=== PATIENT | female | born 1930 | race Caucasian/White ===

== ENCOUNTER 2016-10-09 16:35 | Emergency (ER) | payer MEDICARE ==
[~2016-10-09] VITALS: Ht 152.4 cm; Wt 45.0 kg
[2016-10-09 16:50] VITALS: BP_SYST 124
--- NOTE | 2016-10-09 17:40 | NUR ---
Per daughter in law pt refuses treatment with repiratory/cardiac conditions. Resp labored, HR - tachycardia. Pt ordered by PCP to wear O2 at all times at home, pt refuses and continues to smoke in the house.
== END 2016-10-09 18:35 | disposition left against medical advice (07) ==
LOC: ED 16:36
DX: L98.419 Non-pressure chronic ulcer of buttock with unspecified severity (principal); F17.210 Nicotine dependence, cigarettes, uncomplicated; Z99.81 Dependence on supplemental oxygen; Z91.19 Patient's noncompliance with other medical treatment and regimen
CPT/HCPCS: 99282

== ENCOUNTER 2016-10-28 13:37 | Inpatient (IN) | payer MEDICARE ==
[~2016-10-28] VITALS: Ht 177.8 cm; Wt 48.3 kg
[2016-10-28] MEDS ORDERED: TETANUS, DIPTHERIA, PERTUSSIS (ADACELL) VACCINE 0.5 ML VIAL IM ONE (14:30)
[2016-10-28] MEDS ORDERED: ALBUTEROL 0.083% NEB SOLUTION 2.5 MG/3 ML VIAL INH ONE ×2 (14:30→14:40)
[2016-10-28] MEDS ORDERED: BACITRACIN OINTMENT 0.9 GM PACKET TOP ONE (14:30)
[2016-10-28 15:05] LABS: BASOPHILS % (AUTO) 0 % (0-2); EOSINOPHILS # (AUTO) 0.1 10^3uL; EOSINOPHILS % (AUTO) 1 % (0-4); LYMPHOCYTES # (AUTO) 1.7 X10^3; MEAN CORPUSCULAR HGB CONC 32.8 g/dL (31.0-37.0); MEAN PLATELET VOLUME 9.2 FL (6.0-9.5); MONOCYTES # (AUTO) 0.6 X10^3; MONOCYTES % (AUTO) 6 % (3-11); NEUTROPHILS # (AUTO) 7.7 X10^3; NEUTROPHILS % (AUTO) 76 % (51-67); PLATELET COUNT 365 10^3uL (150-450); WHITE BLOOD COUNT 10.12 10^3uL (4.0-11.0)
[2016-10-28 15:10] LABS: ALBUMIN 4.2 g/dL (3.4-5.0); ANION GAP 21.2 MEQ/L (3-15); CALCULATED IONIZED CALCIUM 4.1 mg/dL (3.8-4.6)
[2016-10-28 15:18] LABS: MEAN CORPUSCULAR VOLUME 107 FL (80-100)
[2016-10-28] MEDS ORDERED: LORazepam 2 MG/ML (ATIVAN) 1 ML VIAL IV ONE ×2 (16:20→18:00)
[2016-10-28] MEDS ORDERED: NICOTINE 21 MG (NICODERM) PATCH TD ONE ×2 (16:20→18:21)
[2016-10-28] MEDS ORDERED: SODIUM CHLORIDE FLUSH 3 ML SYR IV ONE (16:20)
[2016-10-28] MEDS ORDERED: methylPREDNISolone 125 MG (Solu-MEDROL) VIAL IV ONE (16:20)
[2016-10-28 17:00] VITALS: BP 131/63
[2016-10-28] MEDS ORDERED: MAGNESIUM SULFATE 1 GM/2 ML VIAL ONE (17:01)
[2016-10-28] MEDS ORDERED: MULTIVITAMINS (MVI) 2 5 ML VIALS IV ONE (17:01)
[2016-10-28] MEDS ORDERED: THIAMINE 100 MG/ML (VITAMIN B1) 2 ML VIAL ONE (17:02)
[2016-10-28] MEDS: MULTIVITAMIN INJ 10 ML, THIAMINE INJ 100 MG, MAGNESIUM SULFATE 1GM VIAL 2 GM in D5LR 1,... IV SCH (17:34)
[2016-10-28] MEDS: MAGNESIUM SULFATE 1GM VIAL 2 GM, THIAMINE INJ 100 MG, MULTIVITAMIN INJ 10 ML in D5LR 1,... IV SCH ×2 (17:34→18:53)
[2016-10-28] MEDS ORDERED: ALBUTEROL 0.083% NEB SOLUTION 2.5 MG/3 ML VIAL INH PRN (17:45)
[2016-10-28] MEDS ORDERED: THIAMINE 100 MG/ML (VITAMIN B1) 2 ML VIAL IM SCH (18:00)
[2016-10-28] MEDS ORDERED: HALOPERIDOL 5 MG/ML (HALDOL) 1 ML AMP IM PRN (18:00)
[2016-10-28] MEDS ORDERED: LORazepam 2 MG/ML (ATIVAN) 1 ML VIAL IV PRN (18:00)
[2016-10-28 18:09] VITALS: BP 131/63
[2016-10-28] MEDS ORDERED: ACETAMINOPHEN 325 MG TAB (TYLENOL) PO PRN (18:15)
[2016-10-28] MEDS ORDERED: ONDANSETRON 2 MG/ML (Z0FRAN) 2 ML VIAL IV PRN (18:15)
[2016-10-28] MEDS ORDERED: MAGNESIUM HYDROXIDE 80MG/ML (MILK OF MAGNESIA) 30 ML UDC PO PRN (18:15)
[2016-10-28] MEDS: BUDESONIDE NEBS 0.5 MG/2ML (PULMICORT) AMP INH SCH (20:27)
[2016-10-28] MEDS: ALBUTEROL/IPRATROPIUM 3MG-0.5MG/3ML (DUONEB) NEB VIAL INH SCH (20:27)
[2016-10-28] MEDS: methylPREDNISolone 125 MG (Solu-MEDROL) VIAL IV SCH (21:49)
[2016-10-28] MEDS: SODIUM CHLORIDE FLUSH 10 ML SYR IV PRN (21:49)
[2016-10-28] MEDS: FAMOTIDINE 20 MG (PEPCID) TABLET PO SCH (21:50)
[2016-10-29 00:10] VITALS: BP 125/65
[2016-10-29] MEDS: LORazepam 2 MG/ML (ATIVAN) 1 ML VIAL IV PRN ×5 (00:12→17:12)
[2016-10-29] MEDS: ALBUTEROL/IPRATROPIUM 3MG-0.5MG/3ML (DUONEB) NEB VIAL INH SCH ×4 (03:12→21:20)
[2016-10-29] MEDS ORDERED: MAGNESIUM SULFATE 1 GM/2 ML VIAL ONE (03:33)
[2016-10-29] MEDS: MULTIVITAMIN INJ 10 ML, THIAMINE INJ 100 MG, MAGNESIUM SULFATE 1GM VIAL 2 GM in D5LR 1,... IV SCH ×2 (05:10→19:15)
[2016-10-29 06:07] LABS: MEAN CORPUSCULAR HGB CONC 33.6 g/dL (31.0-37.0); MEAN PLATELET VOLUME 9.4 FL (6.0-9.5); PLATELET COUNT 325 10^3uL (150-450); WHITE BLOOD COUNT 4.95 10^3uL (4.0-11.0)
[2016-10-29 06:18] LABS: ALBUMIN 3.4 g/dL (3.4-5.0); ANION GAP 14.8 MEQ/L (3-15); CALCULATED IONIZED CALCIUM 4.3 mg/dL (3.8-4.6); TOTAL PROTEIN 6.7 g/dL (6.4-8.5)
[2016-10-29 06:31] LABS: MEAN CORPUSCULAR HEMOGLOBIN 35.2 PG (26.0-34.0); MEAN CORPUSCULAR VOLUME 105 FL (80-100)
[2016-10-29 06:32] LABS: BAND NEUTROPHILS % 1 % (0-6); EOSINOPHILS % 0 % (0-4); LYMPHOCYTES # 0.3 #; MONOCYTES % 1 % (3-11); RBC MORPH NORMAL (NORMAL); SEGMENTED NEUTROPHILS % 92 % (51-67); TOTAL CELLS COUNTED 100
[2016-10-29 08:10] VITALS: BP 119/44
[2016-10-29] MEDS: FAMOTIDINE 20 MG (PEPCID) TABLET PO SCH (08:59)
[2016-10-29] MEDS: methylPREDNISolone 125 MG (Solu-MEDROL) VIAL IV SCH (09:00)
[2016-10-29] MEDS: SODIUM CHLORIDE FLUSH 10 ML SYR IV PRN ×5 (09:09→17:13)
[2016-10-29] MEDS: BUDESONIDE NEBS 0.5 MG/2ML (PULMICORT) AMP INH SCH ×2 (09:41→21:20)
[2016-10-29] MEDS ORDERED: NS FLUSH 3 ML PRN IV (10:10)
[2016-10-29] MEDS: NICOTINE 21 MG (NICODERM) PATCH TD SCH (10:59)
[2016-10-29] MEDS ORDERED: CHLORDIAZEPOXIDE 25 MG PO SCH (13:00)
[2016-10-29 15:31] VITALS: BP 114/40
[2016-10-29] MEDS: DOXYCYCLINE 100 MG (VIBRAMYCIN) TABLET PO SCH (18:45)
[2016-10-29 21:52] LABS: BILIRUBIN,URINE Negative (Negative); CLARITY,URINE Clear; COLOR,URINE Yellow; GLUCOSE, URINE (UA) Negative (Negative); LEUKOCYTE ESTERASE ,URINE Negative (Negative); PH,URINE 5.5 (5.0 - 8.0); UROBILINOGEN,URINE 0.2 mg/dL (0.2-1.0)
[2016-10-29] MEDS: CHLORDIAZEPOXIDE 25 MG PO SCH (22:47)
[2016-10-30 00:06] VITALS: BP 103/49
[2016-10-30] MEDS: ALBUTEROL/IPRATROPIUM 3MG-0.5MG/3ML (DUONEB) NEB VIAL INH SCH ×5 (03:23→21:12)
[2016-10-30] MEDS: CHLORDIAZEPOXIDE 25 MG PO SCH ×3 (05:46→21:13)
[2016-10-30] MEDS: DOXYCYCLINE 100 MG (VIBRAMYCIN) TABLET PO SCH ×2 (06:23→18:14)
[2016-10-30 07:52] VITALS: BP 97/56
[2016-10-30] MEDS: MULTIVITAMIN INJ 10 ML, THIAMINE INJ 100 MG, MAGNESIUM SULFATE 1GM VIAL 2 GM in D5LR 1,... IV SCH (08:51)
[2016-10-30] MEDS: NS FLUSH 3 ML DAILY IV SCH (09:00)
[2016-10-30] MEDS: BUDESONIDE NEBS 0.5 MG/2ML (PULMICORT) AMP INH SCH ×2 (09:03→21:12)
[2016-10-30] MEDS: predniSONE 20 MG (DELTASONE) TABLET PO SCH (09:23)
[2016-10-30] MEDS: FAMOTIDINE 20 MG (PEPCID) TABLET PO SCH (09:23)
[2016-10-30] MEDS: PATCH REMOVAL TOP SCH (09:26)
[2016-10-30] MEDS: NICOTINE 21 MG (NICODERM) PATCH TD SCH (09:26)
[2016-10-30 15:00] VITALS: BP 153/84
[2016-10-30 20:01] VITALS: BP 120/58
[2016-10-31] VITALS: BP 132/66
[2016-10-31] MEDS: ALBUTEROL/IPRATROPIUM 3MG-0.5MG/3ML (DUONEB) NEB VIAL INH SCH (03:24)
[2016-10-31] MEDS: DOXYCYCLINE 100 MG (VIBRAMYCIN) TABLET PO SCH (06:02)
[2016-10-31] MEDS: CHLORDIAZEPOXIDE 25 MG PO SCH (06:03)
[2016-10-31] MEDS: predniSONE 20 MG (DELTASONE) TABLET PO SCH (07:53)
[2016-10-31 08:00] VITALS: BP 120/47
[2016-10-31] MEDS ORDERED: MULTIVITAMIN W/MINERALS (THERAGRAN M) TABLET PO SCH (08:00)
[2016-10-31] MEDS ORDERED: THIAMINE 100 MG (VITAMIN B-1) TAB PO SCH (08:00)
[2016-10-31] MEDS: PATCH REMOVAL TOP SCH (08:03)
[2016-10-31] MEDS: NS FLUSH 3 ML DAILY IV SCH (09:00)
[2016-10-31] MEDS: FAMOTIDINE 20 MG (PEPCID) TABLET PO SCH (09:30)
[2016-10-31] MEDS: NICOTINE 21 MG (NICODERM) PATCH TD SCH (09:31)
== END 2016-10-31 10:23 | disposition home or self-care (01) | DRG 191 ==
LOC: ED 13:39 → INTOOBSV 16:40 → UNDOADMOB 16:40 → MED/SURG 16:40 → UNDOADMOB 18:11 → OBSVTOIN 18:11
PROVIDERS: ADMIT Family Medicine; ATTEND Family Medicine
DX: J44.1 Chronic obstructive pulmonary disease with (acute) exacerbation (principal); F10.230 Alcohol dependence with withdrawal, uncomplicated; N17.9 Acute kidney failure, unspecified; Z66 Do not resuscitate; S51.812A Laceration without foreign body of left forearm, initial encounter; F03.90 Unspecified dementia, unspecified severity, without behavioral disturbance, psychotic disturbance, mood disturbance, and anxiety; I10 Essential (primary) hypertension; F17.210 Nicotine dependence, cigarettes, uncomplicated; W19.XXXA Unspecified fall, initial encounter; Z91.14 Patient's other noncompliance with medication regimen
CPT/HCPCS: 36415; 71020; 80053; 81003; 82550; 82553; 82803; 83880; 84484; 85025; 86140; 90471; 90715; 94640; 94760; 96374; 96375; 99284

== ENCOUNTER 2016-11-01 03:09 | Emergency (ER) | payer MEDICARE ==
[~2016-11-01] VITALS: Ht 177.8 cm; Wt 45.0 kg
--- NOTE | 2016-11-01 03:43 | NUR ---
Patient's daughter in law called and reported the care home had called her, she is not the DPOA and was asking for information on patient. "I explained I would have to get permission from patient to give her information even though she was hand written on the paper work from the care home that she was the one to contact." She stated, "I understand but I wanted to tell you she had just got out of the hospital today and this was her first day at the facility as she lived at home. She is confused because she is on librium and ativan for alcohol withdrawal and they told me she fell out of bed and I wanted to know if I should come up to the hospital?" I stated, "I will see if the patient is able to give me permission then I will update you as I can." She verbalized understanding.
--- NOTE | 2016-11-01 04:02 | NUR ---
Spoke with patient, asked her who what her [id number] name was and she answered, "Augusto Woodward". I asked her if it was okay to call and update Augusto on her status? She replied, "Yes, definnitely."
--- NOTE | 2016-11-01 04:51 | NUR ---
Report on patient called to Rebecca Lerma RN with [facility]. She will be coming to pick patient up, coming from [place].
--- NOTE | 2016-11-01 05:14 | NUR ---
Assisted patient to Bathroom in room. She transferred well and walked with assist of one w/o complaints of pain.
[2016-11-01 06:50] VITALS: BP 150/77
== END 2016-11-01 05:40 ==
LOC: EDUNIT# 03:09 → ED 03:11
DX: S70.02XA Contusion of left hip, initial encounter (principal); S30.0XXA Contusion of lower back and pelvis, initial encounter; W19.XXXA Unspecified fall, initial encounter; Z91.81 History of falling; Y92.122 Bedroom in nursing home as the place of occurrence of the external cause; F17.210 Nicotine dependence, cigarettes, uncomplicated; F10.20 Alcohol dependence, uncomplicated
CPT/HCPCS: 72100; 72170; 73502; 99283

== ENCOUNTER → 2016-11-01 | Outpatient (CLI) | payer MEDICARE | LOC: EMS 02:55 | PROVIDERS: ATTEND Emergency Medicine | DX: M54.5 Low back pain (principal); M25.552 Pain in left hip; W19.XXXA Unspecified fall, initial encounter ==

== ENCOUNTER 2016-11-07 15:16 | Inpatient (IN) | payer OTHER, MEDICARE ==
[~2016-11-07] VITALS: Ht 144.8 cm; Wt 44.5 kg
[2016-11-07 16:20] VITALS: BP 113/65
--- NOTE | 2016-11-07 16:20 | NUR ---
Pt admitted to room 313. Pt brought by EMS cart. Family at bedside. Katie from hospice here.
[2016-11-07] MEDS ORDERED: morphine ORAL CONC 20 MG/ML (ROXANOL) 1 ML SYRINGE SL PRN (16:55)
[2016-11-07] MEDS ORDERED: CARBOXYMETHYLCELLULOSE 0.5% OU PRN (16:55)
[2016-11-07] MEDS ORDERED: PROMETHAZINE 12.5 MG (PHENERGAN) SUPP PR PRN (16:55)
[2016-11-07 17:21] VITALS: BP 113/65
[2016-11-07] MEDS ORDERED: SCOPOLAMINE 1.5 MG (TRANSDERM-SCOP) PATCH TD SCH (17:29)
--- NOTE | 2016-11-07 17:45 | NUR ---
Maloney catheter inserted with sterile technique. Clear yellow return. Pt tolerated procedure well.
[2016-11-07] MEDS ORDERED: ATROPINE SULFATE 1% OPHTH SOLN 5 ML BTL SL PRN (18:00)
[2016-11-07] MEDS: NICOTINE 14 MG (NICODERM) PATCH TD SCH (18:28)
--- NOTE | 2016-11-07 21:21 | NUR ---
RESTING WITH EYES CLOSED. RESP REGULAR AND UNLABORED. CALM.
--- NOTE | 2016-11-07 22:00 | NUR ---
RESTING WITH EYES CLOSED. RESP REGULAR AND UNLABORED.BILAT FEET W/P/D .CAP REFILL < 3 SEC.
--- NOTE | 2016-11-08 06:06 | NUR ---
Uneventful night. PRN roxanol given this morning per pt shaking her head "yes" when asked if she is in pain and per family request. Cont on 5L oxygen per cannula. SL intact. Skin warm and dry.
[2016-11-08 07:49] VITALS: BP 115/55
--- NOTE | 2016-11-08 07:55 | NUR ---
Pt trying to kick legs out far side of bed, has removed gown and moaning. Ativan 2mg buccally given as ordered.
[2016-11-08] MEDS: LORazepam ORAL CONCENTRATE 2 MG/ML (ATIVAN) SYR PO PRN ×3 (07:57→16:20)
--- NOTE | 2016-11-08 08:03 | NUR ---
NUTRITION ASSESSMENT Level 1 Patient: Yaritza Jay Age/Sex: 86/F Date Screened: 11-08-16 Weight: see below Height: Primary Diagnosis: pneumonia/Hospice--end-of-life care Diet Order: NPO Relevant labs: N/A Food allergies: N Nutrition Assessment Criteria Age over 80: Body Mass Index (BMI) under 19: Admission Screening Indicates Risk? Moderate/High Risk Diagnosis: TPN or PPN: NPO or clear liquid diet: Serum Glucose <70 or >180: Hgb A1c >6.7: Total: Risk Screen: __ Patient at low nutritional risk based on available data; reevaluate in 5-7 days __ Patient at moderate nutritional risk based on available data; reevaluate in 3-5 days _*_ Patient at high nutritional risk; complete Nutrition Assessment within 48 hours of admission. Comments: Because patient is on Hospice and is essentially unresponsive, will sign off on nutritional services at this time.
[2016-11-08] MEDS: NICOTINE PATCH REMOVAL TOP SCH ×2 (08:59→16:25)
--- NOTE | 2016-11-08 10:08 | NUR ---
Pt moved to room 320 for more privacy and bigger room for family to be at bedside. [facility] with patient.
[2016-11-08] MEDS ORDERED: ARTIFICIAL TEARS OPHTHALMIC OINTMENT 3.5 GM TUBE OU PRN (11:00)
[2016-11-08] MEDS ORDERED: ALBUTEROL 0.083% NEB SOLUTION 2.5 MG/3 ML VIAL INH PRN (11:00)
--- NOTE | 2016-11-08 14:04 | NUR ---
MULTIDISCIPLINARY MTG/DR. ECKERT: Pt. admitted yesterday as inpatient hospice through [facility]. Pt. was transferred from [facility] after having respiratory failure and found to have pneumonia. Family opted not to treat and was agreeable to hospice. No discharge needs identified at this time.
[2016-11-08] MEDS: NICOTINE 14 MG (NICODERM) PATCH TD SCH (16:23)
--- NOTE | 2016-11-08 17:52 | NUR ---
Pt repositioned throughout the shift- Katie Thrasher RN from [facility] requests to reposition every 4hours rather than every 2hours. ALso, she requests Lorazepam given every 4hours round the clock to prevent DT's.
--- NOTE | 2016-11-08 18:43 | NUR ---
This nurse called to room at 181- family states "it's close." This nurse could hear a faint apical heartbeat. could see Rt carotid pulse. This nurse sat with patient and family. At approx 1829 pt began agonal breaths- Hospice called. Renetta De La Vega RN to room- At 183 no breaths, no apical heartbeat or carotid pulses noted. Dr. Del Rosario notified. Family at bedside.
--- NOTE | 2016-11-08 20:05 | NUR ---
is transported to [facility]'s home at this time.
[2016-11-10] MEDS ORDERED: SCOPOLAMINE PATCH REMOVAL TOP SCH (17:29)
== END 2016-11-08 18:35 | disposition expired | DRG 189 ==
LOC: MED/SURG 16:41
PROVIDERS: ADMIT Family Medicine; ATTEND Family Medicine
DX: J96.20 Acute and chronic respiratory failure, unspecified whether with hypoxia or hypercapnia (principal); J18.9 Pneumonia, unspecified organism; Z51.5 Encounter for palliative care; Z66 Do not resuscitate; J44.0 Chronic obstructive pulmonary disease with (acute) lower respiratory infection; J44.1 Chronic obstructive pulmonary disease with (acute) exacerbation; R41.81 Age-related cognitive decline; I10 Essential (primary) hypertension; F10.20 Alcohol dependence, uncomplicated; F17.200 Nicotine dependence, unspecified, uncomplicated